=== PATIENT | female | born 1995 | race Caucasian/White ===

== ENCOUNTER 2022-01-07 11:41 | Emergency (ER) | payer BC, MEDICAID ==
[2022-01-07] MEDS ORDERED: Acetaminophen 325 MG Tab PO ONE (13:14)
[2022-01-07] MEDS ORDERED: Lidocaine 5% 700 MG Patch TOP ONE (13:14)
[2022-01-07 13:50] LABS: CARBON DIOXIDE,CO2 23.8 mmol/L (21.0-32.0); POTASSIUM,K 3.4 mmol/L (3.5-5.1)
[2022-01-07] MEDS ORDERED: Magnesium Sulfate (4.06 MEQ/ML) 5 GM/10 ML SDV IV STA (14:29)
[2022-01-07] MEDS ORDERED: Potassium Bicarbonate 25 MEQ Tab.EFF PO STA (14:29)
[2022-01-07] MEDS ORDERED: Magnesium Oxide 400 MG Tab PO ONE (15:01)
[2022-01-07] MEDS ORDERED: Potassium Chloride 20 MEQ Tab.ER ONE (15:09)
[2022-01-07] MEDS ORDERED: Potassium Chloride 20 MEQ Tab.ER PO ONE (15:14)
== END 2022-01-07 15:21 | disposition home or self-care (01) ==
LOC: MW.ED 11:41
DX: E83.42 Hypomagnesemia (principal); Z88.8 Allergy status to other drugs, medicaments and biological substances
CPT/HCPCS: 36415; 80053; 83735; 85027; 99283; A9270

== ENCOUNTER 2024-05-28 17:33 | Emergency (ER) | payer MEDICAID ==
[2024-05-28 19:43] LABS: BASOPHILS ABSOLUTE AUTO 0.05 K/uL (0.00-0.20); BASOPHILS PERCENT AUTO 0.5 % (0.0-1.0); EOSINOPHILS ABSOLUTE AUTO 0.19 K/uL (0.00-0.45); EOSINOPHILS PERCENT AUTO 1.8 % (0.0-6.0); HEMATOCRIT 38.2 % (37.0-47.0); IMMATURE GRAN ABSOLUTE AUTO 0.05 K/uL (0.00-0.05); IMMATURE GRAN PERCENT AUTO 0.5 % (0.0-0.4); LYMPHOCYTES ABSOLUTE AUTO 3.79 K/uL (1.00-4.80); MEAN CORPUSCULAR HEMOGLOBIN 23.9 pg (28.0-32.0); MEAN CORPUSCULAR HGB CONC 31.4 g/dL (32.0-36.0); MEAN CORPUSCULAR VOLUME 75.9 fL (83.0-99.0); MEAN PLATELET VOLUME 10.6 fL (9.4-12.3); MONOCYTES ABSOLUTE AUTO 0.83 K/uL (0.00-0.80); MONOCYTES PERCENT AUTO 7.7 % (0.0-8.0); NEUTROPHILS ABSOLUTE AUTO 5.92 K/uL (1.80-7.70); NEUTROPHILS PERCENT AUTO 54.5 % (41.0-71.0); PLATELET COUNT,PLT 334 K/uL (150-400); RED BLOOD CELL COUNT 5.03 M/uL (4.10-5.30); WHITE BLOOD CELL COUNT,WBC 10.83 K/uL (3.9-11.3)
[2024-05-28 20:09] LABS: A/G RATIO 0.9 (0.9-1.6); ALBUMIN 3.7 g/dL (3.4-5.0); BILIRUBIN TOTAL 0.2 mg/dL (0.2-1.0); CALCIUM 9.3 mg/dL (8.5-10.1); CARBON DIOXIDE,CO2 27.4 mmol/L (21.0-32.0); EST CRCL DRUG DOSING (CG) 82.18 mL/min; POTASSIUM,K 3.7 mmol/L (3.5-5.1)
[2024-05-28 20:48] LABS: TSH ULTRASENSITIVE 2.68 uIU/mL (0.36-3.74)
== END 2024-05-28 21:27 | disposition home or self-care (01) ==
LOC: MW.ED 17:33
DX: R53.83 Other fatigue (principal); Z91.018 Allergy to other foods; Z91.048 Other nonmedicinal substance allergy status; Z88.8 Allergy status to other drugs, medicaments and biological substances; Z88.5 Allergy status to narcotic agent; Z75.8 Other problems related to medical facilities and other health care; Z79.899 Other long term (current) drug therapy; Z90.49 Acquired absence of other specified parts of digestive tract
CPT/HCPCS: 36415; 80053; 83735; 84443; 84703; 85025; 85379; 86308; 99283; 99284